=== PATIENT | male | born 1955 | race Caucasian/White ===

== ENCOUNTER 2016-08-25 09:49 | Emergency (ER) | payer MEDICAID ==
[~2016-08-25 09:49] MED LIST: ADDERALL 30 MG30 M2 PO; ALBUTEROL17 GM; AMPHETAMINE SAL30 M1 PO; ASPIR 8181 MG; ATIVAN0.5 M1 PO; BACTRIM DS1 TAB PO; BUPROPION XL150 M1 PO; CETIRIZINE HCL10 M1 PO; CHANTIX1 M1 PO; DELTASONE50 MG PO; DONEPEZIL HCL10 M2 PO; EFFEXOR75 MG PO; ENALAPRIL MALEA10 MG; FLONASE ALLERG9.9 ML; FUROSEMIDE40 MG PO; HYDROCODON-ACE1 EA16 PO; HYDROCODON-ACE1 EAC8 PO; HYTRIN2 MG PO; INVEGA9 MG PO; ISOSORBIDE DINI10 M1 PO; ISOSORBIDE DINI10 MG PO; K-DUR20 MEQ/TAB PO; KLOR-CON M1010 MEQ; LASIX40 M1 PO; LEVAQUIN500 M1 PO; LEVAQUIN750 M1 PO; LEXAPRO10 MG; LOPRESSOR50 MG PO; METOPROLOL TART50 M2 PO; NEURONTIN300 M1 GT; OXYCODONE-ACET1 EAC4 PO; POTASSIUM CHLO20 ME3 PO; PREDNISONE20 M1 PO; PROAIR HFA8.5 GM INH; PROVENTIL HFA6.7 GM IH; RISPERDAL2 M2 PO; RISPERDAL2 MG PO; RISPERIDONE1 M1 PO; RISPERIDONE2 M1 PO; RITALIN5 M1 PO; SINEMET 25-1001 TA1 PO; SINGULAIR10 M1 PO; SINGULAIR10 MG PO; SSD TOP; SYMBICORT 160-1 PUFF INH; TERAZOSIN HCL2 M1 PO; TOPROL XL50 M1 PO; ZANTAC150 M1 PO; ZANTAC150 MG PO; ZANTAC300 MG
[2016-08-25 11:14] LABS: BASO % 0.3 % (0-2); EOS % 3.3 % (0-7); EOSINOPHIL ABSOLUTE COUNT 0.2 tho/cmm (0.0-0.7); HCT-HEMATOCRIT 41.6 % (36.0-53.5); HGB-HEMOGLOBIN 13.7 gm/dl (13.5-17.0); IMMATURE GRANULOCYTES ABSOLUTE 0.02 tho/cmm (0-0.03); IMMATURE GRANULOCYTES PERCENT 0.3 % (0-0.3); LYMPH % 11.5 % (20-45); LYMPH ABSOLUTE COUNT 0.8 tho/cmm (0.8-4.5); MCHC MEAN CORPUSCULAR HGB CONC 32.9 % (32.0-36.0); MCV (MEAN CELL VOLUME) 97.2 fl (82.0-96.0); MEAN PLATELET VOLUME 9.6 cmc (9.4-12.4); MONO % 13.5 % (0-12); NEUTROPHIL ABSOLUTE COUNT 5.1 tho/cmm (1.6-8.0); NEUTROPHIL-AUTOMATED 5.1 tho/cmm (1.6-8.0); NEUTROPHILS % 71.1 % (40-80); PLATELET COUNT 186 tho/cmm (150-450); RED BLOOD COUNT 4.28 mil/cmm (4.40-5.70); RED CELL DISTRIBUTION WIDTH 15.2 % (12.4-16.4); WHITE BLOOD COUNT 7.2 tho/cmm (4.0-10.0)
[2016-08-25 11:27] LABS: ALB/GLOB RATIO 0.9 (0.8-2.0); ALBUMIN 3.2 g/dl (3.5-5.0); ALKALINE PHOSPHATASE 103 U/L (33-138); ALT/SGPT 23 U/L (12-78); BILIRUBIN,DIRECT <0.1 mg/dl (0.0-0.3); BILIRUBIN,TOTAL 0.1 mg/dl (0.0-1.5); BLOOD UREA NITROGEN 15 mg/dl (6-24); CALCIUM 8.1 mg/dl (8.5-10.5); CARBON DIOXIDE-VENOUS 31 mmol/L (22-32); CHLORIDE 107 mmol/l (96-110); CREATININE 0.81 mg/dl (0.60-1.30); GLUCOSE 86 mg/dL (70-110); SODIUM 144 mmol/L (135-145); eGFR VALUE FOR BLACK >90 mL/Min
[2016-08-25 11:36] LABS: ANION GAP 10 mmol/L (0-20); AST/SGOT 31 U/L (10-40); POTASSIUM 4.2 mmol/L (3.7-5.1)
[2016-08-25 12:25] LABS: URINE LEUKOCYTE ESTERASE NEGATIVE (NEG); URINE PROTEIN NEGATIVE (NEG); URINE SPECIFIC GRAVITY 1.015 (1.003-1.030)
[2016-08-25 12:26] LABS: URINE BILIRUBIN NEGATIVE (NEG); URINE BLOOD NEGATIVE (NEG); URINE GLUCOSE (UA) SMALL (NEG); URINE KETONE NEGATIVE (NEG); URINE NITRITE NEGATIVE (NEG)
[2016-08-25 12:27] LABS: URINE APPEARANCE CLEAR; URINE COLOR YELLOW
== END 2016-08-25 12:52 ==
LOC: EDMED 09:49
PROVIDERS: Emergency Medicine
DX: J44.9 Chronic obstructive pulmonary disease, unspecified (principal); M54.5 Low back pain; Z87.19 Personal history of other diseases of the digestive system; Z85.118 Personal history of other malignant neoplasm of bronchus and lung; G47.33 Obstructive sleep apnea (adult) (pediatric); F41.9 Anxiety disorder, unspecified; F17.200 Nicotine dependence, unspecified, uncomplicated; Z79.899 Other long term (current) drug therapy; Z79.51 Long term (current) use of inhaled steroids
CPT/HCPCS: J1885; J7030

== ENCOUNTER 2016-09-14 12:00 | Emergency (ER) | payer MEDICAID ==
[2016-09-14 13:27] LABS: BASO % 0.1 % (0-2); EOS % 1.7 % (0-7); EOSINOPHIL ABSOLUTE COUNT 0.1 tho/cmm (0.0-0.7); HCT-HEMATOCRIT 41.2 % (36.0-53.5); HGB-HEMOGLOBIN 13.5 gm/dl (13.5-17.0); IMMATURE GRANULOCYTES ABSOLUTE 0.01 tho/cmm (0-0.03); IMMATURE GRANULOCYTES PERCENT 0.1 % (0-0.3); LYMPH % 13.5 % (20-45); MCH (MEAN CORPUSCULAR HGB) 31.3 pg (28.0-32.0); MCHC MEAN CORPUSCULAR HGB CONC 32.8 % (32.0-36.0); MCV (MEAN CELL VOLUME) 95.6 fl (82.0-96.0); MEAN PLATELET VOLUME 9.3 cmc (9.4-12.4); MONO % 9.8 % (0-12); MONOCYTE ABSOLUTE COUNT 0.7 tho/cmm (0.0-1.2); NEUTROPHIL ABSOLUTE COUNT 5.3 tho/cmm (1.6-8.0); NEUTROPHIL-AUTOMATED 5.3 tho/cmm (1.6-8.0); NEUTROPHILS % 74.8 % (40-80); PLATELET COUNT 196 tho/cmm (150-450); RED BLOOD COUNT 4.31 mil/cmm (4.40-5.70); RED CELL DISTRIBUTION WIDTH 14.9 % (12.4-16.4)
[2016-09-14 13:42] LABS: ANION GAP 12 mmol/L (0-20); BLOOD UREA NITROGEN 9 mg/dl (6-24); CALCIUM 8.2 mg/dl (8.5-10.5); CARBON DIOXIDE-VENOUS 30 mmol/L (22-32); CHLORIDE 102 mmol/l (96-110); CREATININE 0.81 mg/dl (0.60-1.30); GLUCOSE 90 mg/dL (70-110); POTASSIUM 3.5 mmol/L (3.7-5.1); SODIUM 140 mmol/L (135-145); eGFR VALUE FOR BLACK >90 mL/Min
[2016-09-14] MEDS ORDERED: KEFLEX500 M4 PO (15:30)
== END 2016-09-14 15:39 ==
LOC: EDMED 12:00
PROVIDERS: Emergency Medicine
DX: R55 Syncope and collapse (principal); L03.115 Cellulitis of right lower limb; I50.9 Heart failure, unspecified; I11.0 Hypertensive heart disease with heart failure; J44.9 Chronic obstructive pulmonary disease, unspecified; Z87.891 Personal history of nicotine dependence; Z90.2 Acquired absence of lung [part of]; Z79.51 Long term (current) use of inhaled steroids; Z79.890 Hormone replacement therapy; Z79.899 Other long term (current) drug therapy
CPT/HCPCS: J7030

== ENCOUNTER 2016-09-18 10:48 | Emergency (ER) | payer MEDICAID ==
[~2016-09-18 10:48] MED LIST changes: +KEFLEX500 M4 PO
[2016-09-18] MEDS ORDERED: ALLEGRA ALLERG180 M1 PO (11:34)
[2016-09-18] MEDS ORDERED: SPIRIVA18 MC1 INH (12:11)
[2016-09-18] MEDS ORDERED: BACTRIM DS TAB1 EAC2 PO (12:13)
[2016-09-18] MEDS ORDERED: NITROSTAT0.4 M1 SL (12:15)
[2016-09-18] MEDS ORDERED: IPRAT-ALBUT 0.5-3 ML INH (12:19)
[2016-09-18] MEDS ORDERED: BENZTROPINE MESY1 M1 PO (12:20)
[2016-09-18] MEDS ORDERED: BUSPIRONE HCL10 M2 PO (12:20)
[2016-09-18] MEDS ORDERED: XANAX0.5 M1 PO (12:21)
[2016-09-18] MEDS ORDERED: VENLAFAXINE HC150 M2 PO (12:22)
== END 2016-09-18 11:20 | disposition left against medical advice (07) ==
LOC: EDMED 10:48
DX: R42 Dizziness and giddiness (principal); Z53.29 Procedure and treatment not carried out because of patient's decision for other reasons

== ENCOUNTER 2016-09-29 14:05 | Emergency (ER) | payer MEDICAID ==
[~2016-09-29 14:05] MED LIST changes: +ALLEGRA ALLERG180 M1 PO; +BACTRIM DS TAB1 EAC2 PO; +BENZTROPINE MESY1 M1 PO; +BUSPIRONE HCL10 M2 PO; +IPRAT-ALBUT 0.5-3 ML INH; +NITROSTAT0.4 M1 SL; +SPIRIVA18 MC1 INH; +VENLAFAXINE HC150 M2 PO; +XANAX0.5 M1 PO
[2016-09-29 14:45] LABS: BASO % 0.5 % (0-2); EOSINOPHIL ABSOLUTE COUNT 0.2 tho/cmm (0.0-0.7); IMMATURE GRANULOCYTES ABSOLUTE 0.02 tho/cmm (0-0.03); IMMATURE GRANULOCYTES PERCENT 0.3 % (0-0.3); LYMPH % 12.7 % (20-45); LYMPH ABSOLUTE COUNT 0.8 tho/cmm (0.8-4.5); MCH (MEAN CORPUSCULAR HGB) 31.9 pg (28.0-32.0); MCHC MEAN CORPUSCULAR HGB CONC 33.3 % (32.0-36.0); MCV (MEAN CELL VOLUME) 95.7 fl (82.0-96.0); MEAN PLATELET VOLUME 9.3 cmc (9.4-12.4); MONO % 11.6 % (0-12); MONOCYTE ABSOLUTE COUNT 0.7 tho/cmm (0.0-1.2); NEUTROPHIL ABSOLUTE COUNT 4.5 tho/cmm (1.6-8.0); NEUTROPHIL-AUTOMATED 4.5 tho/cmm (1.6-8.0); NEUTROPHILS % 71.9 % (40-80); PLATELET COUNT 178 tho/cmm (150-450); RED BLOOD COUNT 4.39 mil/cmm (4.40-5.70); RED CELL DISTRIBUTION WIDTH 14.6 % (12.4-16.4); WHITE BLOOD COUNT 6.3 tho/cmm (4.0-10.0)
[2016-09-29 15:02] LABS: ALB/GLOB RATIO 0.8 (0.8-2.0); ALBUMIN 3.1 g/dl (3.5-5.0); ALKALINE PHOSPHATASE 95 U/L (33-138); ALT/SGPT 13 U/L (12-78); ANION GAP 11 mmol/L (0-20); AST/SGOT 21 U/L (10-40); BILIRUBIN,TOTAL 0.2 mg/dl (0.0-1.5); BLOOD UREA NITROGEN 11 mg/dl (6-24); CARBON DIOXIDE-VENOUS 31 mmol/L (22-32); CHLORIDE 102 mmol/l (96-110); CREATININE 1.01 mg/dl (0.60-1.30); GLUCOSE 114 mg/dL (70-110); POTASSIUM 3.9 mmol/L (3.7-5.1); SODIUM 140 mmol/L (135-145); eGFR VALUE FOR BLACK >90 mL/Min
[2016-09-29] MEDS ORDERED: MECLIZINE HCL25 M3 PO (17:54)
== END 2016-09-29 17:55 ==
LOC: EDMED 14:05
PROVIDERS: Emergency Medicine
DX: R42 Dizziness and giddiness (principal); J44.9 Chronic obstructive pulmonary disease, unspecified; F17.200 Nicotine dependence, unspecified, uncomplicated; Z88.0 Allergy status to penicillin; Z91.041 Radiographic dye allergy status
CPT/HCPCS: A9540; A9558